=== PATIENT | female | born 1965 | race Caucasian/White ===

== ENCOUNTER 2023-09-27 15:50 | Outpatient (CLI) | payer OTHER | END 2023-09-27 23:59 | disposition home or self-care (01) | LOC: MRI 15:50 | PROVIDERS: ATTEND Podiatrist Foot & Ankle Surgery | DX: S93.491A Sprain of other ligament of right ankle, initial encounter (principal); M19.071 Primary osteoarthritis, right ankle and foot; M25.471 Effusion, right ankle; M79.671 Pain in right foot; M25.472 Effusion, left ankle; M76.62 Achilles tendinitis, left leg; E11.9 Type 2 diabetes mellitus without complications; Z72.0 Tobacco use; M21.6X2 Other acquired deformities of left foot; M65.871 Other synovitis and tenosynovitis, right ankle and foot; X58.XXXA Exposure to other specified factors, initial encounter; Y93.89 Activity, other specified; Y92.89 Other specified places as the place of occurrence of the external cause; Y99.8 Other external cause status | CPT/HCPCS: 73721 ==